=== PATIENT | female | born 1960 | race Caucasian/White ===

== ENCOUNTER 2016-08-08 16:36 | Emergency (ER) | payer BC ==
[2016-08-08 16:54] VITALS: BP 138/99
--- NOTE | 2016-08-08 18:01 | UC ---
Respiratory Complaint HPI - HPI Summary HPI Summary: 4-[address] and nasal congestion, now has harsh, painful cough , laryngitis, and some activity intolerance. Denies hx of asthma or COPD, is not feeling wheezing currently. - History of Current Complaint Chief Complaint: UCRespiratory Stated Complaint: CONGESTION Time Seen by Provider: 08/08/16 17:37 Hx Obtained From: Patient ?: No Onset/Duration: Gradual Onset, Lasting Days Timing: Constant Severity Initially: Mild Severity Currently: Moderate Character: Cough: Nonproductive Aggravating Factors: Deep Breaths, Recumbent Position Alleviating Factors: Upright Position Associated Signs And Symptoms: Positive: Pleuritic Chest Pain, URI, Nasal Congestion, Hoarseness - Allergies/Home Medications Allergies/Adverse Reactions: Allergies Allergy/AdvReac Type Severity Reaction Status Date / Time Ampicillin Allergy Rash Verified 04/22/15 14:21 Butorphanol [From Stadol] Allergy Vomiting Verified 04/22/15 14:21 Ciprofloxacin [From Cipro] Allergy Vomiting Verified 04/22/15 14:21 Codeine Allergy Vomiting Verified 04/22/15 14:21 Erythromycin Allergy Vomiting Verified 04/22/15 14:21 Penicillins Allergy Rash Verified 04/22/15 14:21 Tetracycline Allergy Vomiting Verified 04/22/15 14:21 Home Medications: Home Medications Fexofenadine (NF) [Malgorzata (NF)] 60 mg PO DAILY 08/08/16 [History Confirmed ] PMH/Surg Hx/FS Hx/Imm Hx Previously Healthy: Yes - Surgical History Surgical History: Yes Surgery Procedure, Year, and Place: pelvic cyst removed, [facility], csection, bladder rupture, uterine ablasion, right knee, lasik eyes - Family History Known Family History: Positive: Cardiac Disease - father [place], Hypertension, Diabetes - Social History Occupation: Employed Full-time Alcohol Use: Occasionally Substance Use Type: None Smoking Status (MU): Never Smoked Tobacco Review of Systems Constitutional: Negative Skin: Negative Eyes: Negative ENT: Sore Throat, Nasal Discharge Respiratory: Cough Cardiovascular: Negative Gastrointestinal: Negative Genitourinary: Negative Motor: Negative Neurovascular: Negative Musculoskeletal: Negative Neurological: Negative Psychological: Negative All Other Systems Reviewed And Are Negative: Yes Physical Exam Triage Information Reviewed: Yes Appearance: Well-Appearing, No Pain Distress, Well-Nourished Vital Signs: Initial Vital Signs Temp 98 F 08/08/16 16:51 Pulse 82 08/08/16 16:51 Resp 18 08/08/16 16:51 BP 138/99 08/08/16 16:51 Pulse Ox 99 08/08/16 16:51 Vital Signs Reviewed: Yes Eye Exam: Normal Eyes: Positive: Conjunctiva Clear ENT: Positive: Hearing grossly normal, Nasal congestion, TMs normal, Muffled/ hoarse voice - hoarse Dental Exam: Normal Neck exam: Normal Neck: Positive: Supple, Nontender, No Lymphadenopathy Respiratory Exam: Other - harsh cough noted Respiratory: Positive: Chest non-tender, Lungs clear, Normal breath sounds, No respiratory distress, No accessory muscle use Cardiovascular Exam: Normal Cardiovascular: Positive: RRR, No Murmur Musculoskeletal Exam: Normal Neurological Exam: Normal Neurological: Positive: Alert Psychological Exam: Normal Skin Exam: Normal UC Diagnostic Evaluation - Laboratory O2 Sat by Pulse Oximetry: 99 Respiratory Course/Dx - Differential Dx/Diagnosis Provider Diagnoses: acute bronchitis. laryngitis. elevated blood pressure due to discomfort Discharge - Discharge Plan Condition: Stable Disposition: HOME Prescriptions: Albuterol HFA INHALER* [Ventolin HFA Inhaler*] 1 - 2 puff INH Q4H PRN #1 mdi PRN Reason: wheeze, cough HYDROcodone/ACETAMIN 5-325 MG* [[place] 5-325 TAB*] 1 - 2 tab PO BEDTIME PRN #6 tab MDD 2 PRN Reason: Cough Patient Education Materials: Upper Respiratory Infection (ED) Referrals: Octavio Potts MD [Primary Care Provider] - Additional Instructions: You have an an infection or inflammation of the air passageways in your lungs. Symptoms usually include cough, low grade fever, shortness of breath, and wheezing. The cough usually persists for a couple of weeks, sometimes longer. We used to think antibiotics were necessary to treat bronchitis, but studies have shown that respiratory viruses cause the disease in the vast majority of cases. Like head colds, most cases of bronchitis get better without antibiotics. We may prescribe antibiotics if we believe bacteria are damaging your airways, or if there's high risk the bronchitis will worsen into pneumonia (such as for individuals with emphysema or other lung disease). Increase your fluid intake. A cool mist humidifier may make your lungs more comfortable. An expectorant (cough medicine that loosens phlegm) can help. Recovery from bronchitis can be somewhat slow, but you should not have any significant worsening or new fevers. As long as you can breathe easily and you continue to have steady improvement, it is not important how many days it takes you to get better. Call or return if you develop increasing fever, shortness of breath, chest pain , bloody sputum, or otherwise worsen. If you have not improved at all after several days, contact your primary care physician or return here.
== END 2016-08-08 18:01 | disposition home or self-care (01) ==
LOC: UCEAST 16:36
DX: J20.9 Acute bronchitis, unspecified (principal); J04.0 Acute laryngitis; R03.0 Elevated blood-pressure reading, without diagnosis of hypertension
CPT/HCPCS: 99212; G0463

== ENCOUNTER 2018-03-12 19:13 | Emergency (ER) | payer BC ==
--- OUTSIDE RECORDS SUMMARY | 2018-03-12 19:18 | XMS REPORT ---
:1960 External Reference #:[id number] Author Organization [facility] Address [address] [place] [address] Phone [phone] Care Team Providers Name Role Phone Octavio Potts MD Care Team Information Engine Manager Unavailable Octavio Potts MD Primary Care Physician Unavailable Payers Type Date Identification Numbers Payment Provider Subscriber Commercial Effective: Policy Number: BC/BS Of [place] 2017 [id number] PayID: [id number] [place] [address] Medigap Part B Expires: 2017 Policy Number: BC/BS Of [place] [id number] Group Name: Amber Colmenares [address] PayID: [id number] [place] [address] Problems Date Description Provider Status Onset: 06/05/2011 Essential hypertension Jony Layton M.D. Active Onset: 09/01/2015 Eosinophilic esophagitis Octavio Potts M.D. Active Onset: 09/01/2015 Allergic rhinitis Octavio Potts M.D. Active Onset: 09/01/2015 Restless legs Octavio Potts M.D. Active Onset: 06/05/2011 Chest pain Jony Layton M.D. Resolved Resolved: 10/15/2017 Family History Date Family Member(s) Problem(s) Comments Father AR age 57 Mother age 80 heart disease First Brother Hypothyroidism, diabetes First Sister Skin Cancer sun related - no melanoma Social History Type Date Description Comments Education Highest level of education completed is a master's degree Living Situation Lives with spouse and daughter Diet Diet is healthy and well balanced Sleep sleep apnea for 6 years Pets Household pets include a dog Occupation President of financial institution Cigarette Use Never Smoked Cigarettes ETOH Use Social Alcohol Smoking Patient has never smoked Daily Caffeine Consumes on average 2 sodas per day Daily Caffeine Consumes on average 1 cup of tea per day Exercise Type/Frequency Current Exercises regularly Allergies, Adverse Reactions, Alerts Date Description Reaction Status Severity Comments 12/01/2010 Penicillin active 12/01/2010 Tetracycline active 12/01/2010 Stadol active 12/01/2010 Codeine active 12/01/2010 Erythromycin active 07/10/2011 Ampicillin active Medications Medication Date Status Form Strength Qnty SIG Indications Ordering Provider Hydrocodone 02/22 Active Suer 10-8mg/5M 118ml 2.5ml by Volodymyr.9 Chasidy Ventura Polistirex/Chlor L mouth up Enrique pheniramine to 3 [employer]UR[employer] CLE[employer]ER Polistirex times daily as needed for cough Clarithromycin 02/22 Active Tablets 500mg 28tab take one Bacilio Ventura s by mouth Enrique, twice [employer]ER daily until gone Ipratropium 02/19 Active Solution 0.03% 90uni instill 2 Zora Marleny ts sprays MERA Graham into each nostril twice a day if needed Ventolin HFA 02/19 Active Aerosol 108(90Bas 8gm 2 puffs Zora Farmer e) every 4 Graham, NP mcg/Act hours as needed for cough, shortness of breath, wheezing Omeprazole 06/[address] 40mg 30cap 1 by Zora Farmer s mouth MERA Graham once a day Lisinopril 01/08 Active Tablets 5mg 30tab take 1 I10 Zora Ann s tablet by Santos [employer]ER mouth once daily Pramipexole Active Tablets 0.5mg 30tab take 1 G25.81 Octavio A. Dihydrochloride / s tablet by honey Potts M.DDaryl once daily 2 hours before bedtime Malgorzata Allergy Active Tablets 180mg take one Unknown 0000 tablet by mouth every day (allergie s) Flovent HFA Active Aerosol 220mcg/Ac 24gm 1 puff Octavio A. /0000 t twice per Darlow, day M.D. Mometasone Active Suspension 50mcg/Act 2 sprays Unknown Furoate /0000 in each nostril once daily Levaquin 02/07 Hx Tablets 500mg 7tabs 1 by J01.90 mouth Kristie, - daily x 7 FUNCTIONAL SUPPORT ANALYST Medrol 02/07 Hx TBPK 4mg 1unit take dose J01.90 s pack as Kristie, - directed FUNCTIONAL SUPPORT ANALYST 02/21 Medrol 05/18 Hx TBPK 4mg 1unit take dose J01.90 Zora s pack as Graham, [employer]ER - directed 10/15 Levaquin 05/18 Hx Tablets 500mg 7tabs 1 by J01.90 Zora mouth Santos, [employer]ER - daily x 7 Levaquin 02/07 Hx Tablets 500mg 14tab 1 by J01.90 Taylor s mouth Kristie, - every day FUNCTIONAL SUPPORT ANALYST 05/18 for days Levalbuterol 02/07 Hx Aerosol 45mcg/Act 15gm 2 puffs J.90 Taylor Tartrate every 4-6 Kristie, - hours FUNCTIONAL SUPPORT ANALYST 05/18 Ondansetron HCL 02/07 Hx Tablets 4mg 20tab 1-2 by R11.0 s mouth Kristie, - every FUNCTIONAL SUPPORT ANALYST 05/18 4-6h needed nausea Zyrtec Allergy 09/07 Hx Tablets 10mg 1 once a Octavio day Delroy, - M.D. 10/14 Flovent HFA 12/19 Hx Aerosol 220mcg/Ac 24uni inhale Octavio t ts two puffs Singh, - by mouth M.D. 05/18 twice a day Omeprazole 12/[address] 40mg 30cap 1 by Octavio s mouth Delroy, - once a M.D. Topamax 11/10 Hx Tablets 100mg 90tab 1 by E66.09 s mouth in Kristie, - morning FUNCTIONAL SUPPORT ANALYST 08/31 and 2 by mouth at bedtime Topamax 10/09 Hx Tablets 50mg 60tab 1 by 278.00 Luis A Tavarez, s mouth M.D. - twice a Topamax 09/08 Hx Tablets 25mg 60tab 1-2 by 278.00 Luis A Tavarez, s mouth M.D. - every 10/09 Levaquin 08/25 Hx Tablets 500mg 10tab 1 by 381.4 Luis A Tavarez, s mouth M.D. - every day 09/08 for days Omeprazole 06/[address] 40mg 30cap 1 po qd s [facility] 09/08 Of Flovent HFA 06/30 Hx Aerosol 220mcg/Ac 24uni inhale t ts two puffs Medicine - by mouth [facility] 09/08 twice a Of day Nasonex 06/06 Hx Suspension 50mcg/Act 3unit 2 sprays Octavio . s every , - night at M.D. 10/14 bedtime each nostril as needed Lisinopril 06/04 Hx Tablets 10mg 90tab take 1 401.9 Borges A. s tablet by Bong Layton - mouth 01/08 daily Immunizations CPT Code Status Date Vaccine Lot # [id number] Given 12/14/2017 Zoster (Shingles) Vaccine (HZV), Recombinant, [id number] Subunit, Adjuvanted 85360 Given 12/11/2016 Influenza Vac, Quadriv[place], [place] [id number] Given 12/09/2015 Influenza Vac, Quadriv[place], [place] [address] Given 12/10/2014 Influenza Vac, Quadriv[place], [place] [address] Given 05/27/2013 Tdap Tetanus, W Pertussis [id number] [id number] Given 12/05/2012 DO Not Use Split Influenza Virus Vaccine Vital Signs Date Vital Result Comment 02/22/2018 BP Systolic 134 mmHg BP Diastolic 90 mmHg Heart Rate 93 /min Body Temperature 97.5 F Respiratory Rate 14 /min O2 % BldC Oximetry 98 % 02/19/2018 BP Systolic 122 mmHg BP Diastolic 70 mmHg Heart Rate 89 /min Body Temperature 97.7 F Respiratory Rate 16 /min Weight 217.00 lb 02/07/2018 BP Systolic 128 mmHg BP Diastolic 80 mmHg Heart Rate 60 /min Body Temperature 97.9 F Respiratory Rate 18 /min Weight 217.00 lb 10/15/2017 BP Systolic 112 mmHg BP Diastolic 80 mmHg Heart Rate 72 /min Body Temperature 97.5 F Respiratory Rate 16 /min Height 65 inches 5'5" Weight 208.00 lb BMI (Body Mass Index) 34.6 kg/m2 05/18/2017 BP Systolic 130 mmHg BP Diastolic 76 mmHg Heart Rate 72 /min Body Temperature 98.2 F Respiratory Rate 16 /min Height 63.5 inches 5'3.50" Weight 200.12 lb BMI (Body Mass Index) 34.9 kg/m2 02/07/2017 BP Systolic 132 mmHg BP Diastolic 80 mmHg Heart Rate 90 /min Body Temperature 97.7 F Respiratory Rate 18 /min Height 63.5 inches 5'3.50" Weight 210.50 lb BMI (Body Mass Index) 36.7 kg/m2 09/07/2016 BP Systolic 124 mmHg BP Diastolic 84 mmHg Heart Rate 72 /min Body Temperature 97.7 F Respiratory Rate 16 /min Height 63.5 inches 5'3.50" Weight 205.00 lb BMI (Body Mass Index) 35.7 kg/m2 04/17/2016 BP Systolic 124 mmHg BP Diastolic 84 mmHg Heart Rate 68 /min Body Temperature 97.9 F Respiratory Rate 12 /min Height 63.5 inches 5'3.50" Weight 206.00 lb BMI (Body Mass Index) 35.9 kg/m2 09/01/2015 BP Systolic 140 mmHg las arrival BP Diastolic 90 mmHg las arrival BP Systolic Recheck 132 mmHg nu 20 mins BP Diastolic Recheck 82 mmHg nu 20 mins Heart Rate 80 /min Body Temperature 98.3 F Respiratory Rate 16 /min Height 63.5 inches 5'3.50" Weight 200.00 lb BMI (Body Mass Index) 34.9 kg/m2 02/09/2015 BP Systolic 130 mmHg BP Diastolic 80 mmHg Heart Rate 74 /min Respiratory Rate 16 /min Height 63.5 inches 5'3.50" Weight 208.00 lb BMI (Body Mass Index) 36.3 kg/m2 11/10/2014 BP Systolic 120 mmHg BP Diastolic 80 mmHg Heart Rate 74 /min Respiratory Rate 16 /min Height 63.5 inches 5'3.50" Weight 210.00 lb BMI (Body Mass Index) 36.6 kg/m2 10/09/2014 BP Systolic 140 mmHg BP Diastolic 100 mmHg Heart Rate 76 /min Body Temperature 98.5 F Respiratory Rate 16 /min Height 63.5 inches 5'3.50" Weight 210.00 lb BMI (Body Mass Index) 36.6 kg/m2 09/08/2014 BP Systolic 120 mmHg BP Diastolic 90 mmHg Heart Rate 60 /min Body Temperature 98.6 F Respiratory Rate 16 /min Height 63.5 inches 5'3.50" Weight 211.00 lb BMI (Body Mass Index) 36.8 kg/m2 08/25/2014 BP Systolic 120 mmHg BP Diastolic 80 mmHg Heart Rate 80 /min Body Temperature 98.7 F Respiratory Rate 16 /min Height 64 inches 5'4" stated Weight 215.00 lb BMI (Body Mass Index) 36.9 kg/m2 07/29/2014 BP Systolic 132 mmHg BP Diastolic 82 mmHg Heart Rate 88 /min Body Temperature 98.3 F Respiratory Rate 16 /min Height 64 inches 5'4" stated Weight 215.00 lb BMI (Body Mass Index) 36.9 kg/m2 06/30/2013 BP Systolic 138 mmHg BP Diastolic 86 mmHg Heart Rate 72 /min Body Temperature 98.2 F Height 64 inches 5'4" stated Weight 215.38 lb BMI (Body Mass Index) 37.0 kg/m2 05/27/2013 BP Systolic 124 mmHg BP Diastolic 72 mmHg Heart Rate 66 /min Body Temperature 97.5 F Height 64 inches 5'4" stated Weight 210.25 lb BMI (Body Mass Index) 36.1 kg/m2 01/09/2012 BP Systolic 110 mmHg BP Diastolic 70 mmHg Heart Rate 84 /min Body Temperature 98.6 F Height 64.5 inches 5'4.50" stated Weight 196.00 lb BMI (Body Mass Index) 33.1 kg/m2 07/10/2011 BP Systolic 102 mmHg BP Diastolic 66 mmHg Heart Rate 84 /min Body Temperature 98.4 F Height 64.5 inches 5'4.50" stated Weight 197.00 lb BMI (Body Mass Index) 33.3 kg/m2 06/07/2011 BP Systolic 148 mmHg BP Diastolic 72 mmHg Heart Rate 60 /min Body Temperature 98.7 F Height 64.5 inches 5'4.50" stated Weight 195.00 lb BMI (Body Mass Index) 33.0 kg/m2 06/05/2011 BP Systolic 160 mmHg BP Diastolic 100 mmHg Heart Rate 96 /min Body Temperature 99.1 F Respiratory Rate 12 /min Weight 195.00 lb 12/01/2010 BP Systolic 124 mmHg BP Diastolic 80 mmHg Heart Rate 72 /min Weight 195.00 lb Results Test Date Test Result H/L Range Note CBC Electronic Fma 10/15/2017 WBC 6.1 x10^3/UL 4.0-10.0 RBC 4.10 x10^6/UL 3.93-6.00 HGB 13.7 g/dL 12.0-17.0 HCT 39 % 35-50 MCV 94.6 fL 80.0-95.0 MCH 33.4 pg High 25.6-32.2 MCHC 35.3 g/dL 32.2-36.0 RDW-CV 12.4 % 11.6-14.4 PLT 271 x10^3/UL 163-400 MPV 9.9 fL 9.4-12.4 Frank# 3.01 x10^3/UL 1.56-6.13 Lymph# 2.09 x10^3/UL 1.18-3.74 Mason# 0.62 x10^3/UL 0.24-0.82 Eos # 0.3 x10^3/UL 0.0-0.5 Baso # 0.05 x10^3/UL 0.01-0.08 Frank% 49.4 % 34.0-70.0 Lymph % 34.3 % 20.0-52.0 Mason% 10.2 % 5.0-12.0 Eos% 5.1 % 0.7-7.0 Baso% 0.8 % 0.1-1.2 Laboratory test finding 10/15/2017 Hemoglobin A1c (Fma) 5.1 % % 4.1-5.7 Laboratory test finding 10/15/2017 HCV AB NEGATIVE negative Comprehensive Metabolic Prof 10/15/2017 Sodium 145 mEq/L 134-149 Potassium 4.4 mEq/L 3.6-5.5 Chloride 103 mEq/L 94-112 Carbon Dioxide 22 mEq/L 21-32 Glucose 123 mg/dL High 70-105 1 BUN 14 mg/dL 6-26 Creatinine 0.7 mg/dL 0.6-1.4 BUN/Creat Ratio 20.0 CALC 8.0-36.0 Calcium 9.5 mg/dL 8.6-10.2 Total Protein 6.9 g/dL 6.4-8.3 Albumin 4.4 g/dL 3.8-5.5 Globulin 2.5 g/dL 2.0-4.8 A/G Ratio 1.8 CALC 0.6-2.3 Alk. Phosphatase 59 U/L 30-110 Alt (SGPT) 21 U/L 7-35 Ast (Sgot) 21 U/L 5-34 Total Bilirubin 0.7 mg/dL 0.2-1.3 GFR Non- >60 ml/min/1.73m^ >=60 GFR >60 ml/min/1.73m^ >=60 Lipid Profile 10/15/2017 Cholesterol 251 mg/dL High 120-200 Triglycerides 219 mg/dL High 30-200 HDL Cholesterol 70 mg/dL 30-85 LDL (Calculated) 137 CALC High 0-129 VLDL Cholesterol 44 mg/dL 0-50 HDL Risk Factor 3.6 CALC 0.0-4.4 Ua - Micro (a) 02/07/2017 Appearance clear Color yellow Glucose, Urine (Fma/CMC/CTX) neg Bilirubin neg Ketones neg SP Grav <=1.005 Blood neg PH 5.0 Protein neg Urobil 0.2 Nitrite neg Leukocytes (a/CMC/Centrex) trace WBC (a,Centrex) 1-3 Epith few /Lpf Laboratory test finding 02/07/2017 Urine Culture ([facility]) negative Comprehensive Metabolic Prof 04/17/2016 Sodium 139 mEq/L 134-149 Potassium 4.7 mEq/L 3.6-5.5 Chloride 100 mEq/L 94-112 Carbon Dioxide 25 mEq/L 21-32 Glucose 114 mg/dL High 70-105 BUN 16 mg/dL 6-26 Creatinine 0.8 mg/dL 0.6-1.4 BUN/Creat Ratio 20.0 CALC 8.0-36.0 Calcium 10.2 mg/dL 8.6-10.2 Total Protein 7.3 g/dL 6.4-8.3 Albumin 4.4 g/dL 3.8-5.5 Globulin 2.9 g/dL 2.0-4.8 A/G Ratio 1.5 CALC 0.6-2.3 Alk. Phosphatase 62 U/L 30-110 Alt (SGPT) 24 U/L 7-35 Ast (Sgot) 27 U/L 5-34 Total Bilirubin 0.5 mg/dL 0.2-1.3 GFR Non- >60 ml/min/1.73m^ >=60 GFR >60 ml/min/1.73m^ >=60 Lipid Profile 04/17/2016 Cholesterol 223 mg/dL High 120-200 Triglycerides 167 mg/dL 30-200 HDL Cholesterol 69 mg/dL 30-85 LDL (Calculated) 121 CALC 0-129 VLDL Cholesterol 33 mg/dL 0-50 HDL Risk Factor 3.2 CALC 0.0-4.4 Laboratory test finding 04/17/2016 Hemoglobin A1c (Fma) 5.1 % 4.1-5.7 CBC Auto Diff 04/22/2015 White Blood Count 6.8 10^3/uL 3.5-10.8 Red Blood Count 4.23 10^6/uL 4.0-5.4 Hemoglobin 14.1 g/dL 12.0-16.0 Hematocrit 41 % 35-47 Mean Corpuscular Volume 97 fL 80-97 Mean Corpuscular Hemoglobin 33 pg High 27-31 Mean Corpuscular HGB Conc 34 g/dL 31-36 Red Cell Distribution Width 13 % 10.5-15 Platelet Count 280 10^3/uL 150-450 Mean Platelet Volume 9 um3 7.4-10.4 Abs Neutrophils 3.9 10^3/uL 1.5-7.7 Abs Lymphocytes 2.0 10^3/uL 1.0-4.8 Abs Monocytes 0.6 10^3/uL 0-0.8 Abs Eosinophils 0.2 10^3/uL 0-0.6 Abs Basophils 0.1 10^3/uL 0-0.2 Abs Nucleated RBC 0 10^3/uL Granulocyte % 57.5 % 38-83 Lymphocyte % 29.6 % 25-47 Monocyte % 8.6 % 1-9 Eosinophil % 3.5 % 0-6 Basophil % 0.8 % 0-2 Nucleated Red Blood Cells % 0 Laboratory test finding 04/22/2015 Erythrocyte Sed Rate 25 mm/Hr 0-30 Comprehensive Metabolic Prof 09/08/2014 Sodium 144 mEq/L 134-149 Potassium 4.3 mEq/L 3.6-5.5 Chloride 100 mEq/L 94-112 Carbon Dioxide 24 mEq/L 21-32 Glucose 90 mg/dL 70-105 BUN 16 mg/dL 6-26 Creatinine 0.7 mg/dL 0.6-1.4 BUN/Creat Ratio 22.9 CALC 8.0-36.0 Calcium 9.5 mg/dL 8.6-10.2 Total Protein 7.4 g/dL 6.4-8.3 Albumin 4.1 g/dL 3.8-5.5 Globulin 3.3 g/dL 2.0-4.8 A/G Ratio 1.2 CALC 0.6-2.3 Alk. Phosphatase 54 U/L 30-110 Alt (SGPT) 20 U/L 7-35 Ast (Sgot) 22 U/L 5-34 Total Bilirubin 0.6 mg/dL 0.2-1.3 Lipid Profile 09/08/2014 Cholesterol 209 mg/dL High 120-200 Triglycerides 132 mg/dL 30-200 HDL Cholesterol 61 mg/dL 30-85 LDL (Calculated) 122 CALC 0-129 VLDL Cholesterol 26 mg/dL 0-50 HDL Risk Factor 3.4 CALC 0.0-4.4 Laboratory test finding 09/08/2014 TSH 4.35 mIU/L 0.50-6.00 Complete Blood Count 09/08/2014 WBC 7.3 x10^3/UL 3.6-9.6 RBC 4.03 x10^6/UL 3.90-5.70 HGB 14.0 g/dL 12.1-17.2 HCT 40 % 36-50 MCV 99.0 fL High 82.2-97.4 MCH 34.6 pg High 27.6-33.3 MCHC 35.1 g/dL 33.0-35.5 RDW 13.3 % 11.6-13.7 PLT 313 x10^3/UL 150-400 MPV 7.3 fL Low 7.4-10.4 Gran # 3.8 x10^3/UL 1.5-7.2 Lymph# 3.0 x10^3/UL 0.7-4.9 Mason# 0.5 x10^3/UL 0.1-0.9 Gran % 50.9 % 42.2-75.2 Lymph % 41.4 % 20.5-51.1 Mason% 7.7 % 1.7-9.3 Ua - Micro (Fma) 05/27/2013 Appearance CLEAR Color YELLOW Glucose NEG Bilirubin NEG Ketones NEG SP Grav 1.020 Blood TRACE-INTACT PH 5.0 Protein NEG Urobil 0.2 Nitrite NEG Leukocytes (Fma/CMC/Centrex) SMALL Hyaline - /Lpf Granular - /Lpf WBC (Fma,Centrex) 5-10 RBC 1-3 Mucus - /Lpf Epith FEW /Lpf Bacteria 2+ /Hpf Amorphous - /Lpf Crystals, Fluid (Fma/CMC/CTX) - Z#Comments - MMR Imm 05/27/2013 Rubella Antibodies, IgG 1.14 index 2 Rubeola Ab, IgG >300.0 AU/mL High 0.0-24.9 3 Mumps Abs, IgG >300.0 AU/mL High 0.0-8.9 4 Laboratory test finding 05/27/2013 Varicella Zoster V 3434 index High 0- 134 5 AB,Igg Laboratory test finding 05/27/2013 TSH 4.11 mIU/L 0.50-6.00 6 Lipid Profile 05/27/2013 Cholesterol 210 mg/dL High 120-200 Triglycerides 163 mg/dL 30-200 HDL Cholesterol 53 mg/dL 30-85 LDL (Calculated) 124 CALC 0-129 VLDL Cholesterol 21 mg/dL 0-50 HDL Risk Factor 3.2 CALC 0.0-4.4 Comprehensive Metabolic Prof 05/27/2013 Sodium 142 mEq/L 134-149 Potassium 4.7 mEq/L 3.6-5.5 Chloride 101 mEq/L 94-112 Carbon Dioxide 25 mEq/L 21-32 Glucose 104 mg/dL 70-105 BUN 14 mg/dL 6-26 Creatinine 0.8 mg/dL 0.6-1.4 BUN/Creat Ratio 17.5 CALC 8.0-36.0 Calcium 9.1 mg/dL 8.6-10.2 Total Protein 7.2 g/dL 6.3-8.1 Albumin 4.5 g/dL 3.8-5.5 Globulin 2.4 g/dL 2.0-4.8 A/G Ratio 1.7 CALC 0.6-2.3 Alk. Phosphatase 64 U/L 30-110 Alt (SGPT) 15 U/L 7-35 Ast (Sgot) 18 U/L 5-34 Total Bilirubin 0.4 mg/dL 0.2-1.3 Complete Blood Count 05/27/2013 WBC 5.4 x10^3/UL 3.6-9.6 RBC 4.20 x10^6/UL 3.90-5.70 HGB 13.6 g/dL 12.1-17.2 HCT 41 % 36-50 MCV 98.0 fL High 82.2-97.4 MCH 32.5 pg 27.6-33.3 MCHC 33.3 g/dL 33.0-35.5 RDW 12.0 % 11.6-13.7 PLT 245 x10^3/UL 150-400 MPV 7.9 fL 7.4-10.4 Gran # 3.3 x10^3/UL 1.5-7.2 Lymph# 1.8 x10^3/UL 0.7-4.9 Mason# 0.3 x10^3/UL 0.1-0.9 Gran % 59.8 % 42.2-75.2 Lymph % 33.2 % 20.5-51.1 Mason% 7.0 % 1.7-9.3 Comprehensive Metabolic Prof 06/05/2011 Albumin 4.6 g/dL 3.8-5.5 Alk. Phos. 54 U/L 30-110 Alt (SGPT) 14 U/L 7-35 Ast (Sgot) 17 U/L 5-34 BUN 19 mg/dL 6-26 Calcium 9.5 mg/dL 8.6-10.2 Chloride 105 mEq/L 94-112 Creatinine 0.8 mg/dL 0.6-1.4 Carbon Dioxide 26 mEq/L 21-32 Glucose 105 mg/dL 70-105 Sodium 143 mEq/L 134-149 Total Bilirubin 0.3 mg/dL 0.2-1.3 Total Protein 7.3 g/dL 6.3-8.1 Potassium 4.4 mEq/L 3.6-5.5 Globulin 2.8 g/dL 2.0-4.8 A/G Ratio 1.6 Calc 0.6-2.2 BUN/Creat Ratio 23.0 Calc 8.0-36.0 Laboratory test finding 06/05/2011 Troponin < 0.06 ng/ml Low 0.00-2.30 CBC Electronic (a) 06/05/2011 WBC 8.4 3.6-9.6 RBC 4.32 3.90-5.70 Hemoglobin (Fma/CMC/CTX) 14.2 g/dL 12.1 - 17.2 Hematocrit (Fma/CMC/CTX) 41.9 % 36.1 - 50.3 Platelets 319 10^3/ul 150-400 Lymph% 28.1 20.5-51.1 Mixed% 6.8 Neutrophils % 65.1 Mean Corpuscular Vol 97 82.2-97.4 Mean Corpuscular Hemoglobin 32.8 27.6-33.3 Mean Corpuscular Hemo Concen 33.8 32.0-36.0 RDW 12.3 11.6-13.7 Mean Platelet Volume 7.6 6.5-11.0 Laboratory test finding 02/10/2011 Ferritin 41 ng/mL 15-200 Folate 19.36 ng/mL High 3.00-16.00 Iron 89 g/dL 60-150 B12 866 pg/mL 230-1050 Comprehensive Metabolic Prof 02/03/2011 Albumin 4.3 g/dL 3.8-5.5 Alk. Phos. 42 U/L 30-110 Alt (SGPT) 14 U/L 7-35 Ast (Sgot) 17 U/L 5-34 BUN 19 mg/dL 6-26 Calcium 9.1 mg/dL 8.6-10.2 Chloride 110 mEq/L 94-112 Creatinine 0.8 mg/dL 0.6-1.4 Carbon Dioxide 24 mEq/L 21-32 Glucose 95 mg/dL 70-105 Sodium 137 mEq/L 134-149 Total Bilirubin 0.3 mg/dL 0.2-1.3 Total Protein 6.6 g/dL 6.3-8.1 Potassium 4.4 mEq/L 3.6-5.5 Globulin 2.3 g/dL 2.0-4.8 A/G Ratio 1.8 Calc 0.6-2.2 BUN/Creat Ratio 25.3 Calc 8.0-36.0 Lipid Profile 02/03/2011 Cholesterol 143 mg/dL 120-200 HDL 57 mg/dL 30-85 Triglycerides 107 mg/dL 30-200 HDL Risk Factor 2.5 CALC 0.0-4.0 LDL (Calculated) 65 CALC 0-129 VLDL (Calculated) 21 mg/dL 0-50 Laboratory test finding 02/03/2011 TSH 3.97 mIU/L 0.50-6.00 Laboratory test finding 02/03/2011 Cortisol (Am) 21.2 g/dL 4.3-22.4 7 CBC Electronic (Fma) 02/03/2011 WBC 5.8 3.6-9.6 RBC 4.16 3.90-5.70 Hemoglobin (Fma/CMC/CTX) 13.7 g/dL 12.1 - 17.2 Hematocrit (Fma/CMC/CTX) 39.4 % 36.1 - 50.3 Platelets 315 10^3/ul 150-400 Lymph% 36.2 20.5-51.1 Mixed% 14.4 Neutrophils % 49.4 Mean Corpuscular Vol 94.7 82.2-97.4 Mean Corpuscular Hemoglobin 32.9 27.6-33.3 Mean Corpuscular Hemo Concen 34.8 32.0-36.0 RDW 12.8 11.6-13.7 Mean Platelet Volume 11.0 6.5-11.0 1 RESULTS VERIFIED BY REPEAT ANALYSIS 2 Non-immune <0.90 Equivocal 0.90 - 0.99 Immune >0.99 Please note reference interval change 3 Negative <25.0 Equivocal 25.0 - 29.9 Positive >29.9 Presence of antibodies to Rubeola is presumptive evidence of immunity except when acute infection is suspected. Please note reference interval change 4 Negative <9.0 Equivocal 9.0 - 10.9 Positive >10.9 A positive result generally indicates past exposure to Mumps virus or previous vaccination. Please note reference interval change 5 Negative <135 Equivocal 135 - 165 Positive >165 A positive result generally indicates exposure to the pathogen or administration of specific immunoglobulins, but it is not indication of active infection or stage of disease. Please note reference interval change 6 FASTING 7 FASTING; 1 SST Procedures Date CPT Code Description Status 02/26/2017 Mammogram Completed 09/07/2015 Mammogram Completed 07/29/2014 95294 Remove Impacted Cerumen Completed 09/05/2013 Mammogram Completed 05/27/2013 49114 Electrocardiogram Complete Completed 01/29/2012 Mammogram Completed 01/25/2012 Colonoscopy Completed 06/07/2011 37551 Remove Impacted Cerumen Completed 06/05/2011 80275 Electrocardiogram Complete Completed 01/27/2011 Mammogram Completed Encounters Type Date Location Provider CPT E/M Dx Office Visit 02/19/2018 4:30p [facility] Zora Graham [employer] 90770 J20.9 J01.90 Office Visit 02/07/2018 1:15p [facility] Taylor Flowers, [employer]CTIONAL SUPPORT ANALYST 23893 J01.90 Office Visit 10/15/2017 8:40a [facility] Octavio Potts M.D. 54944 Z00.01 I10 K20.0 G25.81 J30.89 Z12.11 Z11.59 R73.09 Office Visit 05/18/2017 2:45p [facility] Zora Graham, [employer] 48314 J01.90 Office Visit 02/07/2017 1:30p [facility] Taylor Flowers, [employer]CTIONAL SUPPORT ANALYST 49622 J01.90 R11.0 R10.814 Office Visit 09/07/2016 6:20p [facility] Octavio Potts M.D. 61974 H81.10 J30.89 Office Visit 04/17/2016 10:20a [facility] Octavio Potts M.D. 71163 L98.9 I10 K20.0 G25.81 J30.89 Z12.11 R73.09 Office Visit 09/01/2015 1:50p [facility] Octavio Potts M.D. 71342 I10 K20.0 J30.89 G25.81 Z12.39 Z12.11 Office Visit 02/09/2015 10:10a [facility] Luis A Tavarez M.D. 62482 E66.09 Office Visit 11/10/2014 9:20a [facility] Luis A Tavarez M.D. 17415 278.00 Office Visit 10/09/2014 9:40a [facility] Luis A Tavarez M.D. 98398 278.00 Office Visit 09/08/2014 2:10p [facility] Luis A Tavarez M.D. 18806 V70.0 278.00 Office Visit 08/25/2014 3:50p [facility] Luis A Tavarez M.D. 36415 381.4 388.30 Office Visit 07/29/2014 4:40p [facility] Lius A Tavarez M.D. 07615 380.4 Office Visit 06/30/2013 10:40a [facility] Jony Layton M.D. 16697 401.9 530.81 Office Visit 05/27/2013 9:50a [facility] Office Jony Layton M.D. 51267 V70.0 401.9 V76.51 787.20 427.89 v06.5 791.7 Office Visit 01/09/2012 9:30a [facility] Office Jony Layton M.D. 44027 401.9 380.4 Office Visit 07/10/2011 10:00a [facility] Office Jony Layton M.D. 35918 401.9 Office Visit 06/07/2011 10:40a [facility] Office Jony Layton M.D. 25954 401.9 786.50 380.4 Office Visit 06/05/2011 2:30p [facility] Office Jony Layton M.D. 84192 786.50 401.9 Office Visit 12/01/2010 1:30p [facility] Taylor Kristie, [facility] [address] [phone] Plan of Care Future Appointment(s):02/28/2018 9:30 am - Octavio Potts M.D. at [facility]02/22/2018 - Chasidy Nunez, NPJ15.9 Unspecified bacterial pneumoniaNew Medication:Hydrocodone Polistirex/Chlorpheniramine Polistirex 10-8 mg/5MLClarithromycin 500 mgComments:Call or return if you develop new fever, trouble breathing, sudden worsening, or pain in the ears, face, or chest . While the symptoms of upper respiratory infections are uncomfortable and can take a long time to go away, they rarely present significant danger. Use a humidifier at night and drink plenty of fluids during the day. Ibuprofen or tylenol are good for headaches and sore throats. Other cough and cold remedies, such as guaifenesin or phenylephrine, will not help you get better any faster. They can temporarily help with symptoms, but you should only continue to take them if you actually experience some relief within a couple hours of taking a dose. It is normal to cough for 2-3 weeks. You should be re-evaluated at the office if your cough persists longer or if you have a cough with fever,wheezing , or worsening pain.AllComments:1. Patient has been queried about patient's goals/preferences and functional/lifestyle goals at relevant visits. If relevant, describe: Has been discussed, noted above2. Treatment goals as explainedto the patient: see above3. Are there barriers to meeting treatment goals? Yes If Yes, please describe: Barriers include possible insurance limits, disease process, and difficulty with lifestyle changes4. Self- Management goals as described to the patient: Yes, see above As always, we strongly encourage a healthy diet and making physical activity a part of your every day life. If you have questions about how or where to start, please contact the office.
--- OUTSIDE RECORDS SUMMARY | 2018-03-12 19:19 | XMS REPORT ---
:1960 External Reference #:[id number] Author Organization [facility] Address [address] [place] [address] Phone [phone] Care Team Providers Name Role Phone Octavio Potts MD Care Team Information Nursing Faculty Unavailable Octavio Potts MD Primary Care Physician Unavailable Payers Type Date Identification Numbers Payment Provider Subscriber Commercial Effective: Policy Number: BC/BS Of [place] 2017 [id number] PayID: [id number] [place] [address] Medigap Part B Expires: 2017 Policy Number: BC/BS Of [place] [id number] Group Name: Amber Colmenares [address] PayID: [id number] [place] [address] Problems Date Description Provider Status Onset: 06/05/2011 Essential hypertension Jony Layton M.D. Active Onset: 09/01/2015 Eosinophilic esophagitis Octavio Potts M.D. Active Onset: 09/01/2015 Allergic rhinitis Octavio Potts M.D. Active Onset: 09/01/2015 Restless legs Octavio Potts M.D. Active Onset: 06/05/2011 Chest pain Jony Layton M.D. Resolved Resolved: 10/15/2017 Family History Date Family Member(s) Problem(s) Comments Father ID age 57 Mother age 80 heart disease [...] Form Strength Qnty SIG Indications Ordering Provider Ipratropium 02/19 Active Solution 0.03% 90uni instill 2 Zora Farmer ts sprays MERA Graham into each nostril twice a day if needed Ventolin HFA 02/19 Active Aerosol 108(90Bas 8gm 2 puffs Zora Farmer e) every 4 MERA Graham mcg/Act hours as needed for cough, shortness of breath, wheezing Levaquin 02/07 Active Tablets 500mg 7tabs 1 by J01 mouth Kristie, daily x 7 [employer] TECHNICIAN days Medrol 02/07 Active TBPK 4mg 1unit take dose J s pack as Kristie, directed [employer] TECHNICIAN Omeprazole 06/[address] 40mg 30cap 1 by Zora Farmer s mouth MERA Graham once a day Lisinopril 01/08 Active Tablets 5mg 30tab take 1 I10 Zora Farmer s tablet by MERA Graham mouth once daily Pramipexole Active Tablets 0.5mg 30tab take 1 G25.81 Octavio A. Dihydrochloride /0000 s tablet by Delroy mouth M.DDaryl once daily 2 hours before bedtime Malgorzata Allergy Active Tablets 180mg take one Unknown /0000 tablet by mouth every day (allergie s) Flovent HFA Active Aerosol 220mcg/Ac 24gm 1 puff Octavio A. /0000 t twice per toan Potts M.DDaryl Mometasone Active Suspension 50mcg/Act 2 sprays Unknown Furoate /0000 in each nostril once daily Medrol 05/18 Hx TBPK 4mg 1unit take dose J01.90 Zora s pack as MERA Graham - directed 10/15 Levaquin 05/18 Hx Tablets 500mg 7tabs 1 by J01.90 Zora mouth MERA Graham - daily x 7 Levaquin 02/07 Hx Tablets 500mg 14tab 1 by J01.90 Taylor s mouth Kristie, - every day [employer] TECHNICIAN 05/18 for days Levalbuterol 02/07 Hx Aerosol 45mcg/Act 15gm 2 puffs Domi01.90 Taylor Tarismael every 4-6 Kristie, - hours [employer] TECHNICIAN 05/18 Ondansetron HCL 02/07 Hx Tablets 4mg 20tab 1-2 by R11.0 Taylor s mouth Kristie, - every [employer] TECHNICIAN 05/18 4-6h needed nausea Zyrtec Allergy 09/07 Hx Tablets 10mg 1 once a Octaivo day Delroy, - M.D. 10/14 Flovent HFA 12/19 Hx Aerosol 220mcg/Ac 24uni inhale Octavio t ts two puffs Delroy, - by mouth M.D. 05/18 twice a day Omeprazole 12/[address] 40mg 30cap 1 by Octavio s mouth Darmarli, - once a M.D. Topamax 11/10 Hx Tablets 100mg 90tab 1 by E66.09 Taylor s mouth in Kristie, - morning [employer] TECHNICIAN 08/31 and 2 by mouth at bedtime Topamax 10/09 Hx Tablets 50mg 60tab 1 by 278.00 Luis A Tavarez s mouth M.D. - twice a Topamax 09/08 Hx Tablets 25mg 60tab 1-2 by 278.00 Luis A Tavarez s mouth M.D. - every 10/09 Levaquin 08/25 Hx Tablets 500mg 10tab 1 by 381.4 Luis A Tavarez s mouth M.D. - every day 09/08 for days Omeprazole 06/[address] 40mg 30cap 1 po qd [facility] 09/08 Of Flovent HFA 06/30 Hx Aerosol 220mcg/Ac 24uni inhale t ts two puffs [facility] - by [facility] 09/08 twice a Of day Nasonex 06/06 Hx Suspension 50mcg/Act 3unit 2 sprays Octavio s every , - night at M.DDaryl 10/14 bedtime each nostril as needed Lisinopril 06/04 Hx Tablets 10mg 90tab take 1 401.9 Borges s tablet by Bong Layton - mouth 01/08 daily Immunizations CPT Code Status Date Vaccine Lot # [id number] Given 12/14/2017 Zoster (Shingles) Vaccine (HZV), Recombinant, [id number] Subunit, Adjuvanted 36438 Given 12/11/2016 Influenza Vac, Quadriv[place], [place] [address] Given 12/09/2015 Influenza Vac, Quadriv[place], [place] [address] Given 12/10/2014 Influenza Vac, [place]riv[place], [place] [address] Given 05/27/2013 Tdap Tetanus, W Pertussis [id number] [id number] Given 12/05/2012 DO Not Use Split Influenza Virus Vaccine Vital Signs Date Vital Result Comment 02/19/2018 BP Systolic 122 mmHg BP Diastolic [...] 3.01 x10^3/UL 1.56-6.13 Lymph# 2.09 x10^3/UL 1.18-3.74 Luce# 0.62 x10^3/UL 0.24-0.82 Eos # 0.3 x10^3/UL 0.0-0.5 Baso # 0.05 x10^3/UL 0.01-0.08 Frank% 49.4 % 34.0-70.0 Lymph % 34.3 % 20.0-52.0 Luce% 10.2 % 5.0-12.0 Eos% 5.1 % 0.7-7.0 Baso% 0.8 % 0.1-1.2 Laboratory test finding 10/15/2017 Hemoglobin A1c (Fma) 5.1 % % 4.1-5.7 Laboratory test finding 10/15/2017 HCV AB NEGATIVE negative Lipid Profile 10/15/2017 Cholesterol 251 mg/dL High 120-200 Triglycerides 219 mg/dL High 30-200 HDL Cholesterol 70 mg/dL 30-85 LDL (Calculated) 137 CALC High 0-129 VLDL Cholesterol 44 mg/dL 0-50 HDL Risk Factor 3.6 CALC 0.0-4.4 Comprehensive Metabolic Prof 10/15/2017 Sodium 145 mEq/L [...] >60 ml/min/1.73m^ >=60 GFR >60 ml/min/1.73m^ >=60 Ua - Micro (Fma) 02/07/2017 Appearance clear Color yellow Glucose, Urine (Fma/CMC/CTX) neg Bilirubin neg Ketones neg SP Grav <=1.005 Blood neg PH 5.0 Protein neg Urobil 0.2 Nitrite neg Leukocytes (Fma/CMC/Centrex) trace WBC (a,Centrex) 1-3 Epith few /Lpf Laboratory test finding 02/07/2017 Urine Culture ([facility] negative Comprehensive Metabolic Prof 04/17/2016 Sodium 139 [...] 3.8 x10^3/UL 1.5-7.2 Lymph# 3.0 x10^3/UL 0.7-4.9 Luce# 0.5 x10^3/UL 0.1-0.9 Gran % 50.9 % 42.2-75.2 Lymph % 41.4 % 20.5-51.1 Luce% 7.7 % 1.7-9.3 Ua - Micro (a) 05/27/2013 Appearance CLEAR Color YELLOW Glucose NEG Bilirubin NEG Ketones NEG SP Grav 1.020 Blood TRACE-INTACT PH 5.0 Protein NEG Urobil 0.2 Nitrite NEG Leukocytes (Fma/CMC/Centrex) SMALL Hyaline - /Lpf Granular - /Lpf WBC (Fma,Centrex) 5-10 RBC 1-3 Mucus - /Lpf Epith FEW /Lpf Bacteria 2+ /Hpf Amorphous - /Lpf Crystals, Fluid (Fma/CMC/CTX) - Z#Comments - Complete Blood Count 05/27/2013 WBC 5.4 x10^3/UL 3.6-9.6 RBC 4.20 x10^6/UL 3.90-5.70 HGB 13.6 g/dL 12.1-17.2 HCT 41 % 36-50 MCV 98.0 fL High 82.2-97.4 MCH 32.5 pg 27.6-33.3 MCHC 33.3 g/dL 33.0-35.5 RDW 12.0 % 11.6-13.7 PLT 245 x10^3/UL 150-400 MPV 7.9 fL 7.4-10.4 Gran # 3.3 x10^3/UL 1.5-7.2 Lymph# 1.8 x10^3/UL 0.7-4.9 Luce# 0.3 x10^3/UL 0.1-0.9 Gran % 59.8 % 42.2-75.2 Lymph % 33.2 % 20.5-51.1 Luce% 7.0 % 1.7-9.3 Comprehensive Metabolic Prof 05/27/2013 Sodium 142 mEq/L [...] U/L 5-34 Total Bilirubin 0.4 mg/dL 0.2-1.3 Lipid Profile 05/27/2013 Cholesterol 210 mg/dL High 120-200 Triglycerides 163 mg/dL 30-200 HDL Cholesterol 53 mg/dL 30-85 LDL (Calculated) 124 CALC 0-129 VLDL Cholesterol 21 mg/dL 0-50 HDL Risk Factor 3.2 CALC 0.0-4.4 MMR Imm 05/27/2013 Rubella Antibodies, IgG 1.14 index 2 Rubeola Ab, IgG >300.0 AU/mL High 0.0-24.9 3 Mumps Abs, IgG >300.0 AU/mL High 0.0-8.9 4 Laboratory test finding 05/27/2013 Varicella Zoster V 3434 index High 0- 134 5 AB,Igg Laboratory test finding 05/27/2013 TSH 4.11 mIU/L 0.50-6.00 6 CBC Electronic (a) 06/05/2011 WBC 8.4 3.6-9.6 RBC 4.32 3.90-5.70 Hemoglobin (Fma/CMC/CTX) 14.2 g/dL 12.1 - 17.2 Hematocrit (Fma/CMC/CTX) 41.9 % 36.1 - 50.3 Platelets 319 10^3/ul 150-400 Lymph% 28.1 20.5-51.1 Mixed% 6.8 Neutrophils % 65.1 Mean Corpuscular Vol 97 82.2-97.4 Mean Corpuscular Hemoglobin 32.8 27.6-33.3 Mean Corpuscular Hemo Concen 33.8 32.0-36.0 RDW 12.3 11.6-13.7 Mean Platelet Volume 7.6 6.5-11.0 Laboratory test finding 06/05/2011 Troponin < 0.06 ng/ml Low 0.00-2.30 Comprehensive Metabolic Prof 06/05/2011 Albumin 4.6 g/dL [...] Ratio 23.0 Calc 8.0-36.0 Laboratory test finding 02/10/2011 Ferritin 41 ng/mL [...] 02/26/2017 Mammogram Completed 09/07/2015 Mammogram Completed 07/29/2014 29941 Remove Impacted Cerumen Completed 09/05/2013 Mammogram Completed 05/27/2013 95003 Electrocardiogram Complete Completed 01/29/2012 Mammogram Completed 01/25/2012 Colonoscopy Completed 06/07/2011 56339 Remove Impacted Cerumen Completed 06/05/2011 94061 Electrocardiogram Complete Completed 01/27/2011 Mammogram Completed Encounters Type Date Location Provider CPT E/M Dx Office Visit 02/07/2018 1:15p [facility] RITA Mendiola 56804 J01.90 Office Visit 10/15/2017 8:40a [facility] Octavio Potts M.D. 42156 Z00.01 I10 K20.0 G25.81 J30.89 Z12.11 Z11.59 R73.09 Office Visit 05/18/2017 2:45p [place] [address] J01.90 Office Visit 02/07/2017 1:30p [facility] RITA Mendiola 14772 J01.90 R11.0 R10.814 Office Visit 09/07/2016 6:20p [facility] Octavio Potts M.D. 32748 H81.10 J30.89 Office Visit 04/17/2016 10:20a [facility] Octavio Potts M.D. 53082 L98.9 I10 K20.0 G25.81 J30.89 Z12.11 R73.09 Office Visit 09/01/2015 1:50p [facility] Office Octavio Potts M.D. 95274 I10 K20.0 J30.89 G25.81 Z12.39 Z12.11 Office Visit 02/09/2015 10:10a [facility] Office Luis A Tavarez M.D. 31061 E66.09 Office Visit 11/10/2014 9:20a [facility] Office Luis A Tavarez M.D. 83110 278.00 Office Visit 10/09/2014 9:40a [facility] Office Luis A Tavarez M.D. 46627 278.00 Office Visit 09/08/2014 2:10p [facility] Office Luis A Tavarez M.D. 45876 V70.0 278.00 Office Visit 08/25/2014 3:50p [facility] Office Luis A Tavarez M.D. 93528 381.4 388.30 Office Visit 07/29/2014 4:40p [facility] Luis A Tavarez M.D. 67378 380.4 Office Visit 06/30/2013 10:40a [facility] Office Jony Layton M.D. 75731 401.9 530.81 Office Visit 05/27/2013 9:50a [facility] Office Jony Layton M.D. 55769 V70.0 401.9 V76.51 787.20 427.89 v06.5 791.7 Office Visit 01/09/2012 9:30a [facility] Office Jony Layton M.D. 41625 401.9 380.4 Office Visit 07/10/2011 10:00a [facility] Office Jony Layton M.D. 48637 401.9 Office Visit 06/07/2011 10:40a [facility] Office Jony Layton M.D. 88912 401.9 786.50 380.4 Office Visit 06/05/2011 2:30p [facility] Office Jony Layton M.D. 16010 786.50 401.9 Office Visit 12/01/2010 1:30p [facility] Office Taylor Flowers, [facility] [address]74 333.94 327.20 Plan of Care Future Appointment(s):02/21/2018 9:30 am - Octavio Potts M.D. at [facility] Bvxyfn2302/19/2018 - Zora Graham, NPJ20.9 Acute bronchitis, unspecifiedNew Xrays:Chest 2 ViewsComments:Upper respiratory infections are rough on your system. Not only do they make you really tired but they dehydrate you really quickly! Supportive care: 1) Make sure you are resting. This is the only way the body can take the energy it needs to heal itself. 2) Fluids, fluids, fluids ! - Drink a lot of water or other caffeine free, clear liquids - Use a humidifier in your room at night - If tolerated, use a saline nasal spray to help clear out your sinuses 3) Cough and blow it out, the more you can getout of your system the better4) Make sure you are washing your hands well so you are not spreading your illness to the community. If you are not improving or begin to get worse, please contact the office to be seen again. Symbicort inhaler sample provided - do not use with ventolinipratropium bromide nasal sprayventolin inhaler will get CXR r/o qtvlrfugeN69.90 Acute sinusitis, unspecifiedAllNew Medication:Ipratropium [place] 0.03 %Ventolin HFA 108(90 Base ) mcg/ActComments:~B_~U_Medication Management~b_~u_ Patient Understands medications he 's taking? Yes No Are there Barriers to Adherence? Yes No Has the patient been asked about herbal supplements and therapies, and OTC meds? Yes No ~B_~U_Care Plan~b_~u_1. Patient has been queried about patient's goals/preferences and functional/lifestyle goals at relevant visits. If relevant, describe: na2. Treatment goals as explained to the patient: above3. Are there barriers to meeting treatment goals? Yes No If Yes, please describe:4. Self-Management goals as described to the patient:Yes NoAs always, we strongly encourage a healthy diet and making physical activity a part of your every day life. If you have questions about how or where to start, please contact the office.
--- NOTE | 2018-03-12 19:46 | UC ---
Back Pain HPI - HPI Summary HPI Summary: Pt reports being dx'd w/ pneumonia approx 1-2 wks ago and given a Z-pack after identifying it on CXR. She continued coughing and was given another antibx; diff. kind and another CXR which did not show anymore pneumonia. She is here today b/c she was coughing so much she felt a pop on her R side. does not have sob but does have pain, violet. w/ breathing. - History of Current Complaint Chief Complaint: UCRespiratory Stated Complaint: RIB PAIN Time Seen by Provider: 03/12/18 19:24 Hx Obtained From: Patient Onset/Duration: Sudden Onset Pain Intensity: 5 - Allergies/Home Medications Allergies/Adverse Reactions: Allergies Allergy/AdvReac Type Severity Reaction Status Date / Time ampicillin Allergy Rash Verified 03/12/18 19:22 butorphanol [From Stadol] Allergy Vomiting Verified 03/12/18 19:22 ciprofloxacin [From Cipro] Allergy Vomiting Verified 03/12/18 19:22 codeine Allergy Vomiting Verified 03/12/18 19:22 erythromycin base Allergy Vomiting Verified 03/12/18 19:22 Penicillins Allergy Rash Verified 03/12/18 19:22 tetracycline Allergy Vomiting Verified 03/12/18 19:22 Home Medications: Home Medications Budesonide/Formote 80/4.5(NF) [Symbicort 80/4.5 (NF)] 03/12/18 [History] Fluticasone HFA 220 mcg(NF) [Flovent Hfa 220 Mcg(NF)] 03/12/18 [History] Mometasone NASAL (NF) [Nasonex (NF)] 03/12/18 [History Confirmed 03/12/18] Naproxen Sodium [Aleve] 220 mg PO ONCE PRN 03/12/18 [History Confirmed 03/12/18] Omeprazole CAP* [Prilosec CAP* 20 MG] 40 mg PO DAILY 03/12/18 [History Confirmed 03/12/18] PMH/Surg Hx/FS Hx/Imm Hx Endocrine History: Other - obesity Cardiovascular History: Hypertension - Surgical History Surgical History: Yes Surgery Procedure, Year, and Place: pelvic cyst removed, maria lu[facility], csection X2, bladder/UTERUS rupture WITH LAST C SECTION, uterine ablasion, LEFT knee, lasik eyes - Family History Known Family History: Positive: Cardiac Disease - father [place], Hypertension, Diabetes - Social History Alcohol Use: Occasionally Substance Use Type: None Smoking Status (MU): Never Smoked Tobacco Review of Systems All Other Systems Reviewed And Are Negative: Yes Constitutional: Positive: Negative Skin: Positive: Negative Respiratory: Positive: Cough, Other - denies pnd. Negative: Shortness Of Breath Cardiovascular: Positive: Negative Gastrointestinal: Positive: Negative Motor: Negative: Weakness Musculoskeletal: Positive: Other: - R sided rib pain after coughing. Negative: Edema Neurological: Negative: Headache, Weakness, Numbness Physical Exam Triage Information Reviewed: Yes Appearance: Well-Appearing, Obese Vital Signs: Initial Vital Signs Temp 97.7 F 03/12/18 19:16 Pulse 98 03/12/18 19:16 Resp 16 03/12/18 19:16 BP 185/105 03/12/18 19:16 Pulse Ox 97 03/12/18 19:16 Vital Signs Reviewed: Yes Respiratory Exam: Normal Respiratory: Positive: No respiratory distress Cardiovascular Exam: Normal Abdomen Description: Negative: CVA Tenderness (R), CVA Tenderness (L) Musculoskeletal: Positive: Other: - L ribs normal. R lower rib has mild tenderness but no abnormal deformities noted. Neurological: Positive: Alert Diagnostics - Radiology No standard instances Radiology Interpretation Completed By: Radiologist Summary of Radiographic Findings: Read on 03/14/18: no fx or pneumothorax. Back Pain Course/Dx - Course Course Of Treatment: R rib pain after coughing for a few wks. Tx'd for her pneumonia and finished both her antibx. Not thought to be freactured but pt wanted to check. No evidence on xray. plan is to tx her pain, likely from a strain in muscle from coughing. Incentive spirometry rx'd to ensure good air movement. Her elevated blood pressure was noted and repeated. She will follo wup with pcp about this. - Differential Dx/Diagnosis Provider Diagnosis: Rib pain on right side Discharge - Sign-Out/Discharge Documenting (check all that apply): Patient Departure All imaging exams completed and their final reports reviewed: No - Discharge Plan Condition: Good Disposition: HOME Prescriptions: Ibuprofen [Ibu] 600 mg PO TID 5 Days #15 tablet Patient Education Materials: How to Use an Incentive Spirometer (ED), Rib Fracture (ED) Referrals: Octavio Potts MD [Primary Care Provider] - Additional Instructions: Someone will call you in the morning for the final xray read. Please use the volumetric dividing machine operator helper as directed. - Billing Disposition and Condition Condition: GOOD Disposition: Home
[2018-03-12] MEDS ORDERED: Ibuprofen TAB* 600 MG PO ONE (20:13)
[2018-03-12 20:50] VITALS: BP 160/90
--- NOTE | 2018-03-13 11:41 | UC ---
- Progress Note Progress Note: Final x-ray report reviewed. No evidence of rib fracture. Will have RN contact patient with final result as was discussed with patient by provider. Course/Dx - Diagnoses Provider Diagnoses: Rib pain on right side Discharge - Sign-Out/Discharge Documenting (check all that apply): Post-Discharge Follow Up All imaging exams completed and their final reports reviewed: Yes - Discharge Plan Condition: Good Disposition: HOME Prescriptions: Ibuprofen [Ibu] 600 mg PO TID 5 Days #15 tablet Patient Education Materials: How to Use an Incentive Spirometer (ED), Rib Fracture (ED) Referrals: Octavio Potts MD [Primary Care Provider] - Additional Instructions: Someone will call you in the morning for the final xray read. Please use the volumetric barley steeper as directed. - Billing Disposition and Condition Condition: GOOD Disposition: Home
== END 2018-03-12 20:30 | disposition home or self-care (01) ==
LOC: UCEAST 19:13
DX: R07.81 Pleurodynia (principal); R05 Cough; E66.9 Obesity, unspecified; I10 Essential (primary) hypertension; Z88.0 Allergy status to penicillin; Z88.1 Allergy status to other antibiotic agents; Z88.5 Allergy status to narcotic agent; Z87.01 Personal history of pneumonia (recurrent)
CPT/HCPCS: 99213; A9270-GY; G0463

== ENCOUNTER 2021-12-15 10:54 | Inpatient (IN) ==
[~2021-12-15 10:54] MED LIST: Buffered Lidocaine 1% SYRIN 1 ml INTRADERM ONE; Famotidine IV 10 MG/ML 2 ml VIAL (20 mg) IV ONE; Lactated Ringers 1000 ml BAG 1,000 ML IV SCH
[2021-12-15] MEDS ORDERED: Famotidine IV 10 MG/ML 2 ml VIAL (20 mg) ONE (11:11)
[2021-12-15] MEDS ORDERED: ceFAZolin 2 GM in NS PREMIX 0 GM/0 ML BAG IVPB ONE (11:14)
[2021-12-15] MEDS ORDERED: Clindamycin 900 MG/D5W BAG 900 MG/50 ML BAG IVPB ONE (11:23)
[2021-12-15] MEDS ORDERED: Midazolam 2 mg/2 ml VIAL 1 mg/ml 2 ml VIAL (2 mg) ONE ×2 (12:19→13:45)
[2021-12-15] MEDS ORDERED: fentaNYL 100 mcg/2 ml 50 MCG/ML VIAL ONE (12:19)
[2021-12-15] MEDS ORDERED: ROPIVACAINE 5 MG/ML 30 ML BTL (0.5%) ONE (12:23)
[2021-12-15] MEDS ORDERED: Ropivacaine 5 MG/ML 20 ML VIAL 0.5% (100 MG) ONE (12:30)
[2021-12-15] MEDS ORDERED: fentaNYL 100 mcg/2 ml 50 MCG/ML VIAL IV PRN (12:51)
[2021-12-15] MEDS ORDERED: Ondansetron 4 mg VIAL 2 MG/ML 2 ml VIAL IV PRN ×2 (12:51→14:00)
[2021-12-15] MEDS ORDERED: Naloxone 0.4 mg VIAL 0.4 mg/ml 1 ml VIAL IV PRN (12:51)
[2021-12-15] MEDS ORDERED: Dexamethasone IV 4 MG/ML VIAL 1 ml VIAL ONE (13:46)
[2021-12-15] MEDS ORDERED: Propofol 10 MG/ML 20 ML BTL ONE (13:46)
[2021-12-15] MEDS ORDERED: Acetaminophen IV 1 GM/100ML 1,000 MG/100 ML BAG IV ONE (13:46)
[2021-12-15] MEDS ORDERED: Lidocaine 2% PF 5 ML VIAL ONE (13:46)
[2021-12-15] MEDS ORDERED: Ondansetron 4 mg VIAL 2 MG/ML 2 ml VIAL ONE (13:46)
[2021-12-15] MEDS ORDERED: Magnesium Hydroxide LIQ 30 ML UDC PO PRN (14:00)
[2021-12-15] MEDS ORDERED: Lactulose 30 ml UDC PO PRN (14:00)
[2021-12-15] MEDS ORDERED: Morphine 2 MG/ML SYRINGE IV PRN (14:00)
[2021-12-15] MEDS ORDERED: Clindamycin 600 MG/D5W BAG 600 MG/50 ML BAG IV SCH (14:00)
[2021-12-15] MEDS ORDERED: Phenylephrine IV 10 MG/ML 1 ml VIAL ONE (14:59)
[2021-12-15] MEDS: Lactated Ringers 1000 ml BAG 1,000 ML IV SCH (17:24)
[2021-12-15] MEDS: Magnesium Hydroxide LIQ 30 ML UDC PO SCH (20:59)
[2021-12-15] MEDS: Clindamycin 600 MG/D5W BAG 600 MG/50 ML BAG IV SCH (21:55)
[2021-12-15] MEDS: Ondansetron ODT 4 mg TAB 4 MG TAB PO PRN (22:01)
[2021-12-16] MEDS: Lactated Ringers 1000 ml BAG 1,000 ML IV SCH (05:03)
[2021-12-16] MEDS: Clindamycin 600 MG/D5W BAG 600 MG/50 ML BAG IV SCH ×2 (05:29→12:42)
[2021-12-16] MEDS: Ondansetron ODT 4 mg TAB 4 MG TAB PO PRN (06:55)
[2021-12-16 07:03] LABS: Hematocrit 33 % (35-47); Hemoglobin 11.3 g/dL (12.0-16.0); Mean Platelet Volume 7.9 fL (7.4-10.4); Platelet Count 256 10^3/uL (150-450)
[2021-12-16 07:23] LABS: Calcium 8.7 mg/dL (8.6-10.3); eGFR CKD-EPI 91.7 (>60)
[2021-12-16] MEDS: Magnesium Hydroxide LIQ 30 ML UDC PO SCH (08:27)
[2021-12-16] MEDS ORDERED: Vitamin THERAPEUTIC TAB PO SCH (09:00)
[2021-12-16 11:58] VITALS: BP 99/67
== END 2021-12-16 13:40 | disposition home or self-care (01) | DRG 302 ==
LOC: INTOOBSV 10:54 → AA 10:54 → SSU 14:01
PROVIDERS: ADMIT Orthopaedic Surgery Adult Reconstructive Orthopaedic Surgery; ATTEND Orthopaedic Surgery Adult Reconstructive Orthopaedic Surgery